=== PATIENT | female | born 1995 | race Two or more races ===

== ENCOUNTER 2018-08-07 19:36 | Emergency (ER) ==
[2018-08-07 21:04] LABS: Bilirubin Negative (Negative); Blood, Urine Negative (Negative); Clarity CLEAR (Clear); Glucose, Urine (Dipstick) Negative (Negative); Leukocyte Trace (Negative); Nitrite Negative (Negative); Protein, Urine (Dipstick) Negative (Neg-Trace); Specific Gravity, Urine 1.013 (1.002-1.036); Urobilinogen 0.2 mg/dL (0.2-1.0); pH, Urine 7.5 (5.0-9.0)
[2018-08-07 21:05] LABS: Bacteria/HPF 1+ HPF (None Seen); Hyaline Casts/LPF 0-3 HYALINE CAST LPF (0-3 Hyaline); Pregnancy Test - Urine (BHCG) Negative (Negative); Pregu Control Bar Appear? YES (CONTROL BAR); RBC/HPF 0-3 HPF (0-3); Specific Gravity 1.013 (1.002-1.036); Squamous Epithelial 0-3 HPF (0-3); WBC/HPF 0-3 HPF (0-3)
[2018-08-07 21:12] LABS: Pregu Control Background? CLEAR/WHITE (CLR/WHITE)
[2018-08-08] MEDS ORDERED: Clindamycin/D5W 900 mg/50 ml Premix Bag ONE (11:01)
[2018-08-08] MEDS ORDERED: Dexamethasone 10 MG/ML VIAL ONE (11:01)
== END 2018-08-07 22:28 | disposition left against medical advice (07) ==
LOC: ERS 19:36
DX: Z53.21 Procedure and treatment not carried out due to patient leaving prior to being seen by health care provider (principal)
CPT/HCPCS: 81003; 81015; 81025

== ENCOUNTER 2018-08-08 09:40 | Emergency (ER) | payer SELFPAY ==
[2018-08-08 10:27] LABS: #Basophils 0.1 thou/uL (0.0-0.2); #Eosinphils 0.4 thou/uL (0.0-0.7); #Lymphocytes 2.5 thou/uL (1.20-3.40); #Monocytes 0.8 thou/uL (0.11-0.59); #Neutrophils 9.5 thou/uL (1.40-6.50); %Basophils 0.4 % (0.0-1.0); %Lymphocytes 18.8 % (21.0-51.0); %Monocytes 6.1 % (0.0-10.0); %Neutrophils 71.7 % (42.0-75.0); Hemoglobin 13.3 g/dL (12.0-16.0); Mean Corpuscular HGB CONC 31.9 g/dL (32.0-36.0); Mean Corpuscular Hemoglobin 27.9 pg (27.0-31.0); Mean Corpuscular Volume 87.4 fL (78.0-98.0); Mean Platelet Volume 7.8 fL (7.4-10.4); Platelet Count 400 thou/uL (130-400); RBC Distribution Width 12.8 % (11.5-14.5); Red Blood Cell (RBC) Count 4.79 mill/uL (4.20-5.40); White Blood Cell (WBC) Count 13.2 thou/uL (4.8-10.8)
[2018-08-08 10:32] LABS: BHCG - Serum Negative (NEGATIVE); Pregs Control Background? CLEAR/WHITE (CLR/WHITE); Pregs Control Bar Appear? YES (CONTROL BAR)
[2018-08-08 10:50] LABS: ALT (SGPT) 15 U/L (8-55); AST (SGOT) 16 U/L (5-34); Albumin 3.8 g/dL (3.5-5.0); Alkaline Phosphatase 72 U/L (40-150); Anion Gap 11 mmol/L (10-20); BUN (Urea Nitrogen) 8 mg/dL (7.0-18.7); Bilirubin, Total 0.4 mg/dL (0.2-1.2); Calc. Creatinine Clearance 0 mL/min (70-130); Carbon Dioxide 24 mmol/L (22-29); Chloride 108 mmol/L (98-107); Estimated GFR-MDRD Greater than 90; Globulin 3.2 g/dL (2.4-3.5); Glucose 87 mg/dL (70-105); Potassium 4.3 mmol/L (3.5-5.1); Sodium 139 mmol/L (136-145)
--- NOTE | 2018-08-08 11:09 | CT ---
CT Facial Bones W Con History: [Abscess] Comparison: None. Findings: No fractures phase. Right sphenoid sinusitis containing fluid. Mild left maxillary mucosal sinus disease. Nasal bones are intact. Osseous nasal septum is intact. Crowns are intact as well as the roots of the mandibular and maxillary teeth. There is a small subper iosteal abscess of the left maxilla due to small osseous erosion near the root of the left maxillary second premolar. This collection is along the buccal surface measuring 9 mm in AP dimension by 5 mm in transverse dimension. Craniocaudal dimension measures 1.3 cm. There is extensive soft tissue swelling along the left face. Hyper enhancement of the adjoining left facial vein. Globes are intact. [place] tonsils are intact as well as the lingual tonsils without abscess. Reactive adenopathy. Impression: Small subperiosteal abscess along the left maxilla buccal surface adjacent to a small cor tical erosion near the tip of the root of the left maxillary second premolar with size as above. Extensive cellulitis of the left face.
[2018-08-08] MEDS ORDERED: ISOVUE-370 76%-LOCM 1 ML ONE (14:25)
== END 2018-08-08 12:41 | disposition home or self-care (01) ==
LOC: ERS 09:40
DX: K04.7 Periapical abscess without sinus (principal)
CPT/HCPCS: 70487; 80053; 84703; 85025; 96361; 96365; Q9966

== ENCOUNTER 2019-03-05 08:28 | Emergency (ER) | payer SELFPAY ==
[2019-03-05] MEDS ORDERED: Ondansetron PF 4 MG/2 ML Vial ONE (09:33)
[2019-03-05 09:39] LABS: Manual Diff?? NO; Mean Corpuscular HGB CONC 32.9 g/dL (32.0-36.0); Mean Corpuscular Hemoglobin 27.6 pg (27.0-31.0); Mean Platelet Volume 7.8 fL (7.4-10.4); Platelet Count 423 thou/uL (130-400); Red Blood Cell (RBC) Count 5.08 mill/uL (4.20-5.40)
[2019-03-05 09:40] LABS: #Basophils 0.9 thou/uL (0.0-0.2); #Eosinphils 0.2 thou/uL (0.0-0.7); #Lymphocytes 2.5 thou/uL (1.20-3.40); #Monocytes 0.7 thou/uL (0.11-0.59); #Neutrophils 9.5 thou/uL (1.40-6.50); %Basophils 0.7 % (0.0-1.0); %Eosinophils 1.8 % (0.0-10.0); %Lymphocytes 19.2 % (21.0-51.0); %Monocytes 5.5 % (0.0-10.0); %Neutrophils 72.8 % (42.0-75.0)
[2019-03-05 09:57] LABS: Anion Gap 12 mmol/L (10-20); BUN (Urea Nitrogen) 6 mg/dL (7.0-18.7); Carbon Dioxide 22 mmol/L (22-29); Chloride 104 mmol/L (98-107); Potassium 3.5 mmol/L (3.5-5.1); Sodium 134 mmol/L (136-145)
[2019-03-05 09:58] LABS: ALT (SGPT) 14 U/L (8-55); AST (SGOT) 17 U/L (5-34); Albumin 4.6 g/dL (3.5-5.0); Alkaline Phosphatase 72 U/L (40-110); Bilirubin, Total 0.6 mg/dL (0.2-1.2); Calc. Creatinine Clearance 0 mL/min (70-130); Calcium 9.6 mg/dL (7.8-10.44); Estimated GFR-MDRD Greater than 90; Globulin 3.2 g/dL (2.4-3.5); Glucose 85 mg/dL (70-105); Protein, Total 7.8 g/dL (6.0-8.3)
[2019-03-05 10:14] LABS: Bilirubin Negative (Negative); Blood, Urine Negative (Negative); Clarity Clear (Clear); Glucose, Urine (Dipstick) Normal (Negative); Leukocyte 75 Leu/uL (Negative); Nitrite Negative (Negative); Protein, Urine (Dipstick) 30 mg/dL (Neg-Trace); RBC/HPF 0-3 HPF (0-3); Squamous Epithelial 0-3 HPF (0-3); Urobilinogen Normal mg/dL (Less than 2); WBC/HPF 0-3 HPF (0-3)
[2019-03-05 10:17] LABS: Bacteria/HPF 1+ HPF (None Seen)
--- NOTE | 2019-03-05 10:37 | ULT ---
US Pelvic Transvag W Doppler History: Pelvic pain Comparison: None. Findings: Real-time grayscale, color, and spectral analysis of the pelvis was performed transabdomina l and transvaginal approach. Uterus measures 8.1 x 4.7 x 6.2 cm. Right ovary measures 4.1 x 2.5 x 4.2 cm and the left ovary measur es 4 x 2.2 x 4.7 cm. Adequate vascular flow to both ovaries. No significant free fluid in the pelvis. There is an intrauterine gestational sac with yolk sac and pole with heart rate documented at 1 20 bpm. Trace subchorionic hemorrhage. The average ultrasound age is 6 weeks 2 day with estimated date of delivery October 27, 2019. Impression: Early single viable intrauterine .
== END 2019-03-05 11:09 | disposition home or self-care (01) ==
LOC: ERS 08:28
DX: O23.41 Unspecified infection of urinary tract in pregnancy, first trimester (principal); O21.8 Other vomiting complicating pregnancy; O99.511 Diseases of the respiratory system complicating pregnancy, first trimester; J45.909 Unspecified asthma, uncomplicated; Z3A.01 Less than 8 weeks gestation of pregnancy
CPT/HCPCS: 76856; 80053; 81003; 81015; 84702; 85025; 94760; 96361; 96374; J2405

== ENCOUNTER 2019-03-22 11:04 | Emergency (ER) | payer SELFPAY ==
[2019-03-22] MEDS ORDERED: Ondansetron PF 4 MG/2 ML Vial ONE (12:02)
[2019-03-22 12:08] LABS: #Basophils 0.1 thou/uL (0.0-0.2); #Eosinphils 0.1 thou/uL (0.0-0.7); #Lymphocytes 1.9 thou/uL (1.20-3.40); #Monocytes 0.7 thou/uL (0.11-0.59); #Neutrophils 12.3 thou/uL (1.40-6.50); %Basophils 0.5 % (0.0-1.0); %Eosinophils 0.7 % (0.0-10.0); %Lymphocytes 12.7 % (21.0-51.0); %Monocytes 4.6 % (0.0-10.0); %Neutrophils 81.4 % (42.0-75.0); Mean Corpuscular Hemoglobin 28.4 pg (27.0-31.0); Mean Corpuscular Volume 83.7 fL (78.0-98.0); Mean Platelet Volume 7.8 fL (7.4-10.4); Platelet Count 404 thou/uL (130-400); RBC Distribution Width 13.5 % (11.5-14.5); Red Blood Cell (RBC) Count 4.91 mill/uL (4.20-5.40); White Blood Cell (WBC) Count 15.1 thou/uL (4.8-10.8)
[2019-03-22 12:25] LABS: Calcium, Ionized 1.21 mmol/L (See Comments:); Chloride 101 mmol/L (98-107); Hemoglobin - Calc 15.5 g/dL (12.0-16.0); Potassium 3.7 mmol/L (3.5-5.1); Sodium 136 mmol/L (138-145); vO2 Saturation-calc 83.5 % (60.0-85.0)
[2019-03-22 12:36] LABS: ALT (SGPT) 20 U/L (8-55); AST (SGOT) 19 U/L (5-34); Albumin 4.3 g/dL (3.5-5.0); Alkaline Phosphatase 68 U/L (40-110); Anion Gap 15 mmol/L (10-20); BUN (Urea Nitrogen) 8 mg/dL (7.0-18.7); Bilirubin, Total 0.5 mg/dL (0.2-1.2); Calc. Creatinine Clearance 0 mL/min (70-130); Calcium 9.8 mg/dL (7.8-10.44); Carbon Dioxide 20 mmol/L (22-29); Chloride 102 mmol/L (98-107); Estimated GFR-MDRD Greater than 90; Globulin 3.6 g/dL (2.4-3.5); Glucose 80 mg/dL (70-105); Lipase 22 U/L (8-78); Potassium 3.6 mmol/L (3.5-5.1); Protein, Total 7.9 g/dL (6.0-8.3); Sodium 133 mmol/L (136-145)
[2019-03-22 12:59] LABS: Bacteria/HPF 2+ HPF (None Seen); Bilirubin Negative (Negative); Blood, Urine Negative (Negative); Clarity Turbid (Clear); Glucose, Urine (Dipstick) Normal (Negative); Leukocyte 250 Leu/uL (Negative); Nitrite Negative (Negative); Protein, Urine (Dipstick) 100 mg/dL (Neg-Trace); RBC/HPF 0-3 HPF (0-3)
[2019-03-22 13:11] LABS: Mucous/LPF 1+ LPF (<2+)
[2019-03-22] MEDS ORDERED: Promethazine HCl 25 MG/ML VIAL ONE (14:05)
== END 2019-03-22 15:56 | disposition home or self-care (01) ==
LOC: ERS 11:04
DX: O21.9 Vomiting of pregnancy, unspecified (principal); O99.281 Endocrine, nutritional and metabolic diseases complicating pregnancy, first trimester; E86.0 Dehydration; O99.511 Diseases of the respiratory system complicating pregnancy, first trimester; J45.909 Unspecified asthma, uncomplicated; Z3A.09 9 weeks gestation of pregnancy
CPT/HCPCS: 36415; 80053; 81003; 81015; 82330; 82803; 83690; 85025; 96361; 96374; 96375; J2405; J2550

== ENCOUNTER 2019-04-03 15:56 | Emergency (ER) | payer OTHER ==
[2019-04-03] MEDS ORDERED: Acetaminophen 500 MG TAB ONE (16:36)
[2019-04-03 17:07] LABS: #Eosinphils 0.1 thou/uL (0.0-0.7); #Lymphocytes 1.1 thou/uL (1.20-3.40); #Monocytes 0.8 thou/uL (0.11-0.59); #Neutrophils 17.5 thou/uL (1.40-6.50); %Basophils 0.2 % (0.0-1.0); %Eosinophils 0.5 % (0.0-10.0); %Lymphocytes 5.7 % (21.0-51.0); %Monocytes 3.9 % (0.0-10.0); %Neutrophils 89.9 % (42.0-75.0); Hemoglobin 14.3 g/dL (12.0-16.0); Mean Corpuscular HGB CONC 33.8 g/dL (32.0-36.0); Mean Corpuscular Hemoglobin 28.7 pg (27.0-31.0); Mean Corpuscular Volume 84.8 fL (78.0-98.0); Mean Platelet Volume 7.6 fL (7.4-10.4); Platelet Count 372 thou/uL (130-400); RBC Distribution Width 13.3 % (11.5-14.5); Red Blood Cell (RBC) Count 4.99 mill/uL (4.20-5.40); White Blood Cell (WBC) Count 19.5 thou/uL (4.8-10.8)
--- NOTE | 2019-04-03 17:08 | ULT ---
US Pelvic Transvag W Doppler HISTORY: Pelvic pain COMPARISON: None TECHNIQUE: Multiple grayscale and color Doppler images were obtained in a transabdominal and transvag inal pelvic ultrasound. Spectral analysis of the Doppler waveforms of the ovaries were performed. FINDINGS: An intrauterine gestation is present, with cardiac activity documented at 175 bpm. On the basis of sonographic imaging this corresponds to 10 week 5 day gestation. Mild free fluid is present. RIGHT OVARY: Normal flow, without focal mass. LEFT OVARY: Normal flow, without focal mass. IMPRESSION: Live intrauterine gestation, as above. Recommend age appropriate continued imaging follow -up.
[2019-04-03 17:26] LABS: Bacteria/HPF None Seen HPF (None Seen); Bilirubin Negative (Negative); Blood, Urine Negative (Negative); Clarity Clear (Clear); Glucose, Urine (Dipstick) Normal (Negative); Leukocyte Negative Leu/uL (Negative); Nitrite Negative (Negative); Protein, Urine (Dipstick) 50 mg/dL (Neg-Trace); Squamous Epithelial 0-3 HPF (0-3); WBC/HPF 0-3 HPF (0-3)
[2019-04-03 17:27] LABS: ALT (SGPT) 24 U/L (8-55); AST (SGOT) 18 U/L (5-34); Alkaline Phosphatase 62 U/L (40-110); Anion Gap 16 mmol/L (10-20); BUN (Urea Nitrogen) 6 mg/dL (7.0-18.7); Bilirubin, Total 0.3 mg/dL (0.2-1.2); Calc. Creatinine Clearance 0 mL/min (70-130); Calcium 9.6 mg/dL (7.8-10.44); Carbon Dioxide 16 mmol/L (22-29); Chloride 104 mmol/L (98-107); Estimated GFR-MDRD Greater than 90; Globulin 3.5 g/dL (2.4-3.5); Glucose 82 mg/dL (70-105); Potassium 4.3 mmol/L (3.5-5.1); Protein, Total 7.5 g/dL (6.0-8.3); Sodium 132 mmol/L (136-145)
[2019-04-03 17:30] LABS: RBC/HPF 0-3 HPF (0-3)
[2019-04-03] MEDS ORDERED: cefTRIAXone\\ROCEPHIN 250 MG VIAL ONE (18:09)
[2019-04-03] MEDS ORDERED: Lidocaine 1% PF 5 ML VIAL ONE (18:09)
[2019-04-03] MEDS ORDERED: Azithromycin 250 MG TAB ONE (18:12)
[2019-04-07 00:25] LABS: Chlamydia by PCR Not Detected (NotDetected); GC by PCR Not Detected (NotDetected)
== END 2019-04-03 18:46 | disposition home or self-care (01) ==
LOC: ERS 15:56
DX: O26.891 Other specified pregnancy related conditions, first trimester (principal); R10.32 Left lower quadrant pain; O99.511 Diseases of the respiratory system complicating pregnancy, first trimester; J45.909 Unspecified asthma, uncomplicated; Z79.899 Other long term (current) drug therapy; Z3A.10 10 weeks gestation of pregnancy
CPT/HCPCS: 36415; 51701; 76856; 80053; 81003; 81015; 84702; 85025; 86900; 86901; 87480; 87491; 87510; 87591; 87660; 96372; A4353; J0696; J2001

== ENCOUNTER 2019-04-14 12:50 | Emergency (ER) | payer OTHER ==
[2019-04-14 13:54] LABS: #Basophils 0.1 thou/uL (0.0-0.2); #Lymphocytes 2.1 thou/uL (1.20-3.40); #Monocytes 0.8 thou/uL (0.11-0.59); #Neutrophils 8.3 thou/uL (1.40-6.50); %Basophils 0.6 % (0.0-1.0); %Eosinophils 0.2 % (0.0-10.0); %Lymphocytes 18.4 % (21.0-51.0); %Monocytes 6.9 % (0.0-10.0); %Neutrophils 73.9 % (42.0-75.0); Hemoglobin 14.8 g/dL (12.0-16.0); Mean Corpuscular HGB CONC 33.8 g/dL (32.0-36.0); Mean Corpuscular Hemoglobin 28.1 pg (27.0-31.0); Mean Corpuscular Volume 83.1 fL (78.0-98.0); Mean Platelet Volume 7.7 fL (7.4-10.4); Platelet Count 346 thou/uL (130-400); RBC Distribution Width 13.1 % (11.5-14.5); Red Blood Cell (RBC) Count 5.26 mill/uL (4.20-5.40); White Blood Cell (WBC) Count 11.2 thou/uL (4.8-10.8)
[2019-04-14 14:16] LABS: ALT (SGPT) 79 U/L (8-55); AST (SGOT) 43 U/L (5-34); Alkaline Phosphatase 73 U/L (40-110); Anion Gap 16 mmol/L (10-20); BUN (Urea Nitrogen) 8 mg/dL (7.0-18.7); Bilirubin, Total 0.3 mg/dL (0.2-1.2); Calc. Creatinine Clearance 0 mL/min (70-130); Calcium 9.4 mg/dL (7.8-10.44); Carbon Dioxide 21 mmol/L (22-29); Chloride 102 mmol/L (98-107); Estimated GFR-MDRD Greater than 90; Globulin 3.8 g/dL (2.4-3.5); Glucose 76 mg/dL (70-105); Lipase 17 U/L (8-78); Potassium 3.8 mmol/L (3.5-5.1); Protein, Total 7.8 g/dL (6.0-8.3); Sodium 135 mmol/L (136-145)
[2019-04-14 16:32] LABS: Bacteria/HPF None Seen HPF (None Seen); Bilirubin Negative (Negative); Blood, Urine Negative (Negative); Clarity Clear (Clear); Glucose, Urine (Dipstick) Normal (Negative); Leukocyte Negative Leu/uL (Negative); Nitrite Negative (Negative); Protein, Urine (Dipstick) 70 mg/dL (Neg-Trace); RBC/HPF 0-3 HPF (0-3); Squamous Epithelial 0-3 HPF (0-3); WBC/HPF 0-3 HPF (0-3)
== END 2019-04-14 17:54 | disposition home or self-care (01) ==
LOC: ERS 12:50
DX: O99.89 Other specified diseases and conditions complicating pregnancy, childbirth and the puerperium (principal); R10.30 Lower abdominal pain, unspecified; R11.0 Nausea; O99.511 Diseases of the respiratory system complicating pregnancy, first trimester; J45.909 Unspecified asthma, uncomplicated; Z3A.12 12 weeks gestation of pregnancy
CPT/HCPCS: 36415; 80053; 81003; 81015; 83690; 85025; 99284

== ENCOUNTER 2019-04-26 12:22 | Emergency (ER) | payer OTHER ==
[2019-04-26 13:23] LABS: #Eosinphils 0.1 thou/uL (0.0-0.7); #Lymphocytes 1.7 thou/uL (1.20-3.40); #Monocytes 0.9 thou/uL (0.11-0.59); #Neutrophils 12.7 thou/uL (1.40-6.50); %Basophils 0.3 % (0.0-1.0); %Eosinophils 0.5 % (0.0-10.0); %Lymphocytes 10.7 % (21.0-51.0); %Neutrophils 82.4 % (42.0-75.0); Hemoglobin 14.8 g/dL (12.0-16.0); Mean Corpuscular HGB CONC 32.8 g/dL (32.0-36.0); Mean Corpuscular Hemoglobin 27.4 pg (27.0-31.0); Mean Corpuscular Volume 83.7 fL (78.0-98.0); Platelet Count 414 thou/uL (130-400); Red Blood Cell (RBC) Count 5.41 mill/uL (4.20-5.40); White Blood Cell (WBC) Count 15.4 thou/uL (4.8-10.8)
[2019-04-26 13:34] LABS: ALT (SGPT) 59 U/L (8-55); AST (SGOT) 29 U/L (5-34); Albumin 4.2 g/dL (3.5-5.0); Alkaline Phosphatase 70 U/L (40-110); Anion Gap 18 mmol/L (10-20); BUN (Urea Nitrogen) 9 mg/dL (7.0-18.7); Bilirubin, Total 1.5 mg/dL (0.2-1.2); Calc. Creatinine Clearance 0 mL/min (70-130); Calcium 9.9 mg/dL (7.8-10.44); Carbon Dioxide 19 mmol/L (22-29); Chloride 102 mmol/L (98-107); Estimated GFR-MDRD 88; Globulin 3.8 g/dL (2.4-3.5); Glucose 72 mg/dL (70-105); Potassium 3.6 mmol/L (3.5-5.1); Sodium 135 mmol/L (136-145)
[2019-04-26] MEDS ORDERED: Ondansetron PF 4 MG/2 ML Vial ONE (14:02)
[2019-04-26 14:42] LABS: Bilirubin 1+ (Negative); Blood, Urine Negative (Negative); Clarity Turbid (Clear); Glucose, Urine (Dipstick) Normal (Negative); Leukocyte 75 Leu/uL (Negative); Nitrite Negative (Negative); Protein, Urine (Dipstick) 200 mg/dL (Neg-Trace); Urobilinogen 6 mg/dL (Less than 2)
[2019-04-26 14:49] LABS: Bacteria/HPF 1+ HPF (None Seen); RBC/HPF 0-3 HPF (0-3)
== END 2019-04-26 16:03 | disposition home or self-care (01) ==
LOC: ERS 12:22
DX: O21.9 Vomiting of pregnancy, unspecified (principal); O99.282 Endocrine, nutritional and metabolic diseases complicating pregnancy, second trimester; Z3A.14 14 weeks gestation of pregnancy
CPT/HCPCS: 36415; 80053; 81003; 81015; 85025; 87086; 96361; 96374; J2405

== ENCOUNTER 2019-07-17 01:27 | Emergency (ER) | payer OTHER ==
[2019-07-17] MEDS ORDERED: Acetaminophen 500 MG TAB ONE (01:45)
[2019-07-17 02:07] LABS: #Basophils 0.1 thou/uL (0.0-0.2); #Eosinphils 0.2 thou/uL (0.0-0.7); #Lymphocytes 2.4 thou/uL (1.20-3.40); #Monocytes 0.9 thou/uL (0.11-0.59); #Neutrophils 11.2 thou/uL (1.40-6.50); %Basophils 0.5 % (0.0-1.0); %Eosinophils 1.6 % (0.0-10.0); %Lymphocytes 16.2 % (21.0-51.0); %Monocytes 6.2 % (0.0-10.0); %Neutrophils 75.4 % (42.0-75.0); Hemoglobin 11.9 g/dL (12.0-16.0); Mean Corpuscular HGB CONC 33.6 g/dL (32.0-36.0); Mean Corpuscular Hemoglobin 28.9 pg (27.0-31.0); Mean Corpuscular Volume 86.1 fL (78.0-98.0); Mean Platelet Volume 7.8 fL (7.4-10.4); Platelet Count 325 thou/uL (130-400); RBC Distribution Width 13.6 % (11.5-14.5); Red Blood Cell (RBC) Count 4.11 mill/uL (4.20-5.40); White Blood Cell (WBC) Count 14.8 thou/uL (4.8-10.8)
[2019-07-17] MEDS ORDERED: Ondansetron ODT 8 MG TAB ONE (02:12)
[2019-07-17 03:03] LABS: ALT (SGPT) 11 U/L (8-55); AST (SGOT) 15 U/L (5-34); Albumin 3.3 g/dL (3.5-5.0); Alkaline Phosphatase 72 U/L (40-110); Anion Gap 13 mmol/L (10-20); BUN (Urea Nitrogen) 8 mg/dL (7.0-18.7); Bilirubin, Total 0.3 mg/dL (0.2-1.2); Calc. Creatinine Clearance 0 mL/min (70-130); Calcium 9.1 mg/dL (7.8-10.44); Carbon Dioxide 21 mmol/L (22-29); Chloride 104 mmol/L (98-107); Estimated GFR-MDRD Greater than 90; Globulin 3.4 g/dL (2.4-3.5); Glucose 84 mg/dL (70-105); Potassium 3.3 mmol/L (3.5-5.1); Protein, Total 6.7 g/dL (6.0-8.3); Sodium 135 mmol/L (136-145)
--- NOTE | 2019-07-18 13:43 | EKG ---
Test Reason : EMERGENCY Blood Pressure : / mmHG Vent. Rate : 063 BPM Atrial Rate : 063 BPM P-R Int : 138 ms QRS Dur : 084 ms QT Int : 354 ms P-R-T Axes : 066 061 040 degrees QTc Int : 362 ms Normal sinus rhythm Normal ECG Confirmed by NICKI BLANCAS ([id number]), supervising editor news reel TASHA FIGUEROA ([id number]) on 07/18/2019 1:42:59 PM Referred By: Confirmed By:NICKI BLANCAS
== END 2019-07-17 03:12 | disposition home or self-care (01) ==
LOC: ERS 01:27
DX: O99.89 Other specified diseases and conditions complicating pregnancy, childbirth and the puerperium (principal); R55 Syncope and collapse; O99.512 Diseases of the respiratory system complicating pregnancy, second trimester; J45.909 Unspecified asthma, uncomplicated; Z3A.26 26 weeks gestation of pregnancy
CPT/HCPCS: 36415; 80053; 85025; 93005; Q0162

== ENCOUNTER 2019-10-22 12:26 | Outpatient (CLI) | payer OTHER ==
[2019-10-23 14:03] LABS: SARS-CoV-2 MS2 Positive; SARS-CoV-2 N Gene Negative; SARS-CoV-2 S Gene Negative; SARS-CoV-2 orf1ab Negative
== END 2019-10-22 12:27 | disposition home or self-care (01) ==
LOC: LABSCS 12:26
PROVIDERS: ATTEND Obstetrics & Gynecology
DX: Z01.812 Encounter for preprocedural laboratory examination (principal); Z11.59 Encounter for screening for other viral diseases
CPT/HCPCS: 87635; U0003

== ENCOUNTER 2019-10-25 03:06 | Inpatient (IN) | payer OTHER ==
[2019-10-25 03:41] VITALS: BMI 38.7
[2019-10-25] MEDS ORDERED: Promethazine HCl 25 MG/ML VIAL IM PRN ×2 (04:11→05:29)
[2019-10-25] MEDS ORDERED: hydrALAZINE 20 MG/ML VIAL SLOW IVP PRN ×2 (04:11→14:06)
[2019-10-25] MEDS ORDERED: Ondansetron PF 4 MG/2 ML Vial IVP PRN ×3 (04:11→14:06)
[2019-10-25] MEDS ORDERED: Calcium Gluc 4.6 MEQ/10 ML (100 MG/ML) SLOW IVP PRN (04:11)
[2019-10-25] MEDS ORDERED: NS / Oxytocin 40 units/1000ml 1,000 ML IV PRN (04:11)
[2019-10-25] MEDS ORDERED: Lidocaine 1% (PF) 30 ML VIAL SC PRN (04:11)
[2019-10-25] MEDS ORDERED: HYDROcodone/Acetaminophen 5/325 mg Tablet PO PRN ×3 (04:11→14:06)
[2019-10-25] MEDS ORDERED: Ibuprofen 800 MG TAB PO PRN (04:11)
[2019-10-25] MEDS ORDERED: Butorphanol Tartrate 1 MG/ML VIAL SLOW IVP PRN (04:11)
[2019-10-25] MEDS ORDERED: Magnesium Sulfate 20 gm/500 ml 20 GM/500 ML BAG ONE (04:14)
[2019-10-25] MEDS ORDERED: Magnesium Sulfate 20 GM/WATER 500 ML BAG IVPB SCH (04:15)
--- NOTE | 2019-10-25 04:16 | PDOC.BPN ---
- Brief Progress Note OBGYN [employer] This is a patient of Dr Patel. She is here for possible CTX. She is a G1 at 39 weeks 6 days with initial BPs 190s/90s. She has recieved 5mg apresoline per protocol. I have ordered MagSulfate, and direct admission to Dr Aly. She is sal every 2 minutes or so, so I did not write for pitocin. Her CX is 3/70/-2 per RN. DX: severe Preeclampsia at Full term. Direct admit to Dr Aly. We will notify him of the patient's arrival. I have placed courtesy orders for Dr Aly
--- NOTE | 2019-10-25 04:25 | PDOC.BPN ---
- Brief Progress Note 10/22/19 COVID was neg
--- NOTE | 2019-10-25 04:33 | PDOC.LDHP ---
Labor and Delivery H&P HPI: Patient of Dr Aly's I have seen the patient at bedside 24yo G1 at 39 weeks 6 days with CTX. No KIRAN, no visual changes, no RUQ pain.Good FM. Was svheduled for IOL this PM. COVID was NEG 10/21. Current gestational age (weeks): 39 (6 D) Dating criteria: last menstrual period Grav: 1 Current complications: none Abnormal US findings: No Past Medical History: Remote HX Asthma Current medications: pre- vitamins Previous surgical history: none Allergies/Adverse Reactions: Allergies Allergy/AdvReac Type Severity Reaction Status Date / Time No Known Drug Allergies Allergy Verified 10/25/19 03:43 Social history: none - Physical Exam Vital signs reviewed and normal: yes (initial BP was 190/90...triggered the apresoline (5mg) protocol) General: NAD, breathing through contractions Abdomen: gravid Extremeties: pitting edema (at bilateral LE) FHT: category 1 Tim[place]in contractions every: every 1-2 - Vaginal Exam cm dilated: 3 (per Dianne (RN)) Effacement: 75% Station: -2 - Assessment L&D Assessment: term patient in labor Severe Preeclampsia with recent neg COVID test - Plan Plan: admit to L&D, labor augmentation if indicated, informed consent obtained, magnesium for seizure prophylaxis, anesthesia consult for pain management, other (I have discussed MagSulfate with the patient. Feet swollen, swollen hands , nasal ridges swollen c/w PrEeclampsia. CMP ordered per protocol. Protein not ordered as will not manager of change as severe by BP alone.)
[2019-10-25 04:35] LABS: Hemoglobin 10.3 g/dL (12.0-16.0); Mean Corpuscular Hemoglobin 24.6 pg (27.0-31.0); Mean Corpuscular Volume 79.4 fL (78.0-98.0); Mean Platelet Volume 9.1 fL (7.4-10.4); Platelet Count 387 thou/uL (130-400); RBC Distribution Width 14.5 % (11.5-14.5); Red Blood Cell (RBC) Count 4.18 mill/uL (4.20-5.40); White Blood Cell (WBC) Count 14.1 thou/uL (4.8-10.8)
[2019-10-25] MEDS ORDERED: Fentanyl 4 mcg/Bup 0.1% Cadd 100 ML ONE ×2 (04:44→11:41)
[2019-10-25 05:01] LABS: ALT (SGPT) 8 U/L (8-55); AST (SGOT) 19 U/L (5-34); Albumin 3.3 g/dL (3.5-5.0); Alkaline Phosphatase 200 U/L (40-110); Anion Gap 16 mmol/L (10-20); BUN (Urea Nitrogen) 10 mg/dL (7.0-18.7); Bilirubin, Total 0.4 mg/dL (0.2-1.2); Calc. Creatinine Clearance 163 mL/min (70-130); Calcium 8.8 mg/dL (7.8-10.44); Carbon Dioxide 18 mmol/L (22-29); Chloride 106 mmol/L (98-107); Estimated GFR-MDRD 84; Globulin 3.2 g/dL (2.4-3.5); Glucose 71 mg/dL (70-105); Potassium 4.3 mmol/L (3.5-5.1); Protein, Total 6.5 g/dL (6.0-8.3); Sodium 136 mmol/L (136-145)
[2019-10-25 05:19] LABS: Syphilis Antibody Nonreactive (Nonreactive); Syphilis Antibody Index 0.03 S/CO (<1.00 Non-Reactive)
[2019-10-25 05:21] LABS: HBSAg Index 0.13 S/CO (0-0.99); HIV (1/2) Antibody/Antigen Non-Reactive (NonReactive); HIV 1/2 INDEX 0.17 S/CO (<1.00); Hep B Surf Ag Non-Reactive S/CO (NonReactive); Hep C IgG Ab Non-Reactive (NonReactive); Hep C Index 0.06 S/CO (0-0.79)
[2019-10-25] MEDS ORDERED: Lactated Ringer's 500 ML IV PRN (05:29)
[2019-10-25] MEDS ORDERED: Acetaminophen 325 MG TAB PO PRN (05:29)
[2019-10-25] MEDS ORDERED: EPHEDRINE 25 MG/5 ML SYRINGE SLOW IVP PRN (05:29)
[2019-10-25] MEDS ORDERED: Naloxone HCl 0.4 mg/ml Vial IVP PRN ×2 (05:29)
[2019-10-25] MEDS ORDERED: diphenhydrAMINE 50 MG/ML VIAL IVP PRN (05:29)
[2019-10-25] MEDS ORDERED: Fentanyl 4 mcg/Bupivacaine 0.1% Cassette 100 ML EPIDURAL SCH (05:30)
[2019-10-25] MEDS ORDERED: Communication Order-Pharmacy FS SCH (05:30)
[2019-10-25] MEDS ORDERED: NS w/ Oxytocin 10 units 500 ML ONE (08:12)
[2019-10-25] MEDS ORDERED: hydrALAZINE 20 MG/ML VIAL ONE ×2 (08:39→09:56)
[2019-10-25] MEDS ORDERED: NS / Oxytocin 40 units/1000ml 1,000 ML IV SCH ×2 (08:45→14:15)
[2019-10-25] MEDS ORDERED: Bupivacaine/Epinephrine 0.25% 30 ML VIAL ONE (09:09)
[2019-10-25] MEDS ORDERED: hydrALAZINE 20 MG/ML VIAL SLOW IVP SCH (09:55)
[2019-10-25] MEDS ORDERED: Labetalol HCl 100 MG/20 ML VIAL ONE (10:40)
[2019-10-25] MEDS ORDERED: Labetalol HCl 100 MG/20 ML VIAL SLOW IVP SCH (11:00)
[2019-10-25] MEDS ORDERED: diphenhydrAMINE 25 MG CAP PO PRN (14:06)
[2019-10-25] MEDS ORDERED: Preparation H Ointment 28 GM TUBE PR PRN (14:06)
[2019-10-25] MEDS ORDERED: Zolpidem Tartrate 5 MG TAB PO PRN (14:06)
[2019-10-25] MEDS ORDERED: Milk Of Magnesia 30 ML UDCUP PO PRN (14:06)
[2019-10-25] MEDS ORDERED: Lanolin Ointment 7 GM TUBE TOP PRN (14:06)
[2019-10-25] MEDS ORDERED: Misoprostol 200 MCG TAB VAG PRN (14:06)
[2019-10-25] MEDS ORDERED: Bisacodyl 10 MG SUPP PR PRN (14:06)
[2019-10-25] MEDS ORDERED: Benzocaine-Menthol 82.5 ML CAN TOP PRN (14:06)
[2019-10-25] MEDS: Labetalol 100 MG TAB PO SCH ×2 (15:03→21:47)
[2019-10-25] MEDS: Magnesium Sulfate 20 gm/500 ml 20 GM/500 ML BAG IVPB SCH (15:48)
[2019-10-25] MEDS: HYDROcodone/Acetaminophen 5/325 mg Tablet PO PRN ×2 (17:00→21:47)
[2019-10-25] MEDS: Docusate Calcium (SURFAK) 240 MG CAP PO SCH (21:48)
[2019-10-25] MEDS: Ibuprofen 800 MG TAB PO SCH (21:48)
[2019-10-26] MEDS: Lactated Ringer's 1,000 ML IV SCH ×3 (02:19→15:25)
[2019-10-26] MEDS: Ibuprofen 800 MG TAB PO SCH ×3 (05:56→21:25)
[2019-10-26] MEDS: Magnesium Sulfate 20 gm/500 ml 20 GM/500 ML BAG IVPB SCH (07:06)
[2019-10-26 07:07] LABS: Hemoglobin 8.5 g/dL (12.0-16.0); Mean Corpuscular HGB CONC 31.1 g/dL (32.0-36.0); Mean Corpuscular Hemoglobin 25.1 pg (27.0-31.0); Mean Corpuscular Volume 80.5 fL (78.0-98.0); Mean Platelet Volume 7.8 fL (7.4-10.4); Platelet Count 298 thou/uL (130-400); RBC Distribution Width 14.8 % (11.5-14.5); White Blood Cell (WBC) Count 13.2 thou/uL (4.8-10.8)
[2019-10-26] MEDS ORDERED: Prenatal Vitamin 1 TAB PO SCH ×2 (09:00→14:31)
[2019-10-26] MEDS ORDERED: Adacel (T-DAP) 0.5 ML SYRINGE IM ONE (09:00)
[2019-10-26] MEDS: Docusate Calcium (SURFAK) 240 MG CAP PO SCH ×2 (09:18→21:25)
[2019-10-26] MEDS: Labetalol 100 MG TAB PO SCH ×3 (09:19→21:24)
[2019-10-26] MEDS: Ferrous Sulfate 325 MG TAB PO SCH ×4 (09:19→17:40)
[2019-10-26] MEDS ORDERED: Misoprostol 200 MCG TAB VAG PRN (14:31)
[2019-10-26] MEDS ORDERED: diphenhydrAMINE 25 MG CAP PO PRN (14:31)
[2019-10-26] MEDS ORDERED: hydrALAZINE 20 MG/ML VIAL SLOW IVP PRN ×3 (14:31)
[2019-10-26] MEDS ORDERED: HYDROcodone/Acetaminophen 5/325 mg Tablet PO PRN ×4 (14:31)
[2019-10-26] MEDS ORDERED: Ondansetron PF 4 MG/2 ML Vial IVP PRN ×2 (14:31)
[2019-10-26] MEDS ORDERED: Ibuprofen 800 MG TAB PO SCH (14:31)
[2019-10-26] MEDS ORDERED: Bisacodyl 10 MG SUPP PR PRN ×2 (14:31)
[2019-10-26] MEDS ORDERED: NS / Oxytocin 40 units/1000ml 1,000 ML IV SCH ×2 (14:31)
[2019-10-26] MEDS ORDERED: Milk Of Magnesia 30 ML UDCUP PO PRN ×2 (14:31)
[2019-10-26] MEDS ORDERED: Benzocaine-Menthol 82.5 ML CAN TOP PRN ×2 (14:31)
[2019-10-26] MEDS ORDERED: Preparation H Ointment 28 GM TUBE PR PRN ×2 (14:31)
[2019-10-26] MEDS ORDERED: Lanolin Ointment 7 GM TUBE TOP PRN ×2 (14:31)
[2019-10-26] MEDS ORDERED: Zolpidem Tartrate 5 MG TAB PO PRN ×2 (14:31)
[2019-10-26] MEDS ORDERED: Ferrous Sulfate 325 MG TAB PO SCH ×2 (17:00)
[2019-10-26] MEDS ORDERED: Docusate Calcium (SURFAK) 240 MG CAP PO SCH (21:00)
[2019-10-27] MEDS: Ibuprofen 800 MG TAB PO SCH ×3 (05:52→21:20)
[2019-10-27] MEDS: Docusate Calcium (SURFAK) 240 MG CAP PO SCH ×2 (08:56→21:20)
[2019-10-27] MEDS: Ferrous Sulfate 325 MG TAB PO SCH ×2 (08:56→17:12)
[2019-10-27] MEDS: Prenatal Vitamin 1 TAB PO SCH (08:57)
[2019-10-27] MEDS: Labetalol 100 MG TAB PO SCH ×3 (08:57→21:20)
[2019-10-27] MEDS ORDERED: Sodium Chloride 0.9% 10 ML ONE (09:28)
[2019-10-27] MEDS ORDERED: Hydrochlorothiazide 25 MG TAB PO SCH (12:00)
[2019-10-27] MEDS ORDERED: Adacel (T-DAP) 0.5 ML SYRINGE IM ONE (14:31)
[2019-10-28] MEDS: Ibuprofen 800 MG TAB PO SCH (05:07)
[2019-10-28] MEDS ORDERED: Sodium Chloride 0.9% 20 ML ONE (06:04)
[2019-10-28] MEDS: hydrALAZINE 20 MG/ML VIAL SLOW IVP PRN ×2 (06:06→09:34)
[2019-10-28] MEDS ORDERED: Hydrochlorothiazide 25 MG TAB PO SCH (09:00)
[2019-10-28] MEDS: Ferrous Sulfate 325 MG TAB PO SCH (09:06)
[2019-10-28] MEDS: Labetalol 100 MG TAB PO SCH (09:06)
[2019-10-28] MEDS: Docusate Calcium (SURFAK) 240 MG CAP PO SCH (09:06)
[2019-10-28] MEDS: Prenatal Vitamin 1 TAB PO SCH (09:06)
[2019-10-28] MEDS ORDERED: Sodium Chloride 0.9% 10 ML ONE (09:33)
[2019-10-28 12:30] VITALS: BP 140/70; TEMP 98.7
== END 2019-10-28 13:57 | disposition home or self-care (01) | DRG 807 ==
LOC: L&D/OP 03:06 → L&D 04:42 → 3SE 10-26 14:40 → 3SW 10-27 16:59
PROVIDERS: ADMIT Obstetrics & Gynecology; ATTEND Obstetrics & Gynecology
PROC: 10E0XZZ Delivery of Products of Conception, External Approach (ICD-10-PCS; principal; 2019-10-25)
PROC: 0KQM0ZZ Repair Perineum Muscle, Open Approach (ICD-10-PCS; 2019-10-25)
DX: O14.14 Severe pre-eclampsia complicating childbirth (principal); Z37.0 Single live birth; Z3A.39 39 weeks gestation of pregnancy; O16.5 Unspecified maternal hypertension, complicating the puerperium; O69.81X0 Labor and delivery complicated by cord around neck, without compression, not applicable or unspecified; O70.1 Second degree perineal laceration during delivery
CPT/HCPCS: 36415; 51702; 80053; 85027; 86780; 86803; 86850; 86870; 86900; 86901; 86905; 86922; 87340; 87389; 88307; 99285; J0360; J2405; J2590; J3475